=== PATIENT | male | born 1975 | race African-American/Black ===

== ENCOUNTER 2025-08-03 17:17 | Emergency (ER) | payer MEDICARE, OTHER ==
[~2025-08-03] VITALS: Ht 195.6 cm; Wt 111.4 kg
[2025-08-03 17:26] VITALS: TEMP 98.4
[2025-08-03] MEDS ORDERED: METF-1211 PO (17:30)
[2025-08-03] MEDS ORDERED: RIVA10TA PO (17:30)
[2025-08-03] MEDS ORDERED: LOSA-381 PO (17:30)
[2025-08-03] MEDS ORDERED: GLIP5TAB16 PO (17:30)
[2025-08-03 17:44] LABS: APPEARANCE,URINE CLEAR (CLEAR); GLUCOSE, URINE (UA) 70-100 mg/dL (NEGATIVE); LEUKOCYTE ESTERASE ,URINE NEGATIVE (NEGATIVE); NITRATE,URINE NEGATIVE (NEGATIVE); OCCULT BLOOD,URINE MODERATE (NEGATIVE); SPECIFIC GRAVITIY, URINE 1.020 (1.003-1.030)
[2025-08-03 17:55] LABS: SULFOSALICYLIC ACID,URINE 1+ (Negative)
[2025-08-03 17:56] LABS: SQUAMOUS EPITHELIAL CELL,UR Rare /LPF (None Seen)
[2025-08-03] MEDS: SODIUM CHLORIDE 0.9% 1,000 ML IV ONE (18:05)
[2025-08-03] MEDS: MORPHINE SULFATE 2 MG/ML SYRINGE IVP ONE (18:23)
[2025-08-03 18:24] LABS: PLATELET COUNT (AUTO) 242 K/uL (150-450); RED BLOOD CELL COUNT(AUTO) 4.47 MIL/uL (4.50-5.90); RED CELL DISTRIBUTION WIDTH 16.2 % (11.5-14.5); WHITE BLOOD COUNT (AUTO) 4.9 K/uL (4.5-11.0)
[2025-08-03 18:32] LABS: CALCIUM, TOTAL 8.6 mg/dL (8.8-10.5); CREATININE 1.28 mg/dL (0.60-1.30); GLOMERULAR FILTR. RATE CALC > 60 mL/min (>60); GLUCOSE,RANDOM 233 mg/dL (70-110); SODIUM SERUM 138 mmol/L (136-145); UREA NITROGEN, BLOOD 7 mg/dL (7-18)
[2025-08-03 18:38] LABS: ASPARTATE AMINOTRANSFERASE 62.0 U/L (15-37); TOTAL PROTEIN, SERUM 7.7 g/dL (6.4-8.2)
[2025-08-03] MEDS: METOCLOPRAMIDE HCL 5 MG/ML 2 ML VIAL IVP ONE (19:01)
[2025-08-03] MEDS: KETOROLAC TROMETHAMINE 30 MG/ML VIAL IVP ONE (19:02)
[2025-08-03 19:38] VITALS: BP 129/87; PULSE 103; RESP 18; O2SAT 96
[2025-08-03] MEDS ORDERED: TRAM50TA5 PO (22:07)
[2025-08-03] MEDS ORDERED: TAMS0.4C94 PO (22:07)
[2025-08-03] MEDS: LIDOCAINE 5% TRANSDERMAL PATCH TD ONE (22:09)
[2025-08-03] MEDS: TAMSULOSIN HCL 0.4 MG CAPSULE PO ONE (22:09)
[2025-08-03] MEDS ORDERED: LIDO-57 TP (22:19)
== END 2025-08-03 22:31 | disposition home or self-care (01) ==
LOC: EMS 17:17
DX: N20.0 Calculus of kidney (principal); R10.A1 Flank pain, right side; K74.60 Unspecified cirrhosis of liver; E11.9 Type 2 diabetes mellitus without complications; I10 Essential (primary) hypertension; G89.29 Other chronic pain; I82.401 Acute embolism and thrombosis of unspecified deep veins of right lower extremity; Z88.0 Allergy status to penicillin; Z79.01 Long term (current) use of anticoagulants; Z79.899 Other long term (current) drug therapy
CPT/HCPCS: 99285; 74176; 96374; 96361; 96375; 80048; 80076; 81001; 83690; 85025; 36415; J1885; J2765; J2270; J7030; 81002